=== PATIENT | female | born 1960 | race African-American/Black ===

== ENCOUNTER → 2016-08-10 | Outpatient (CLI) | payer MEDICARE, OTHER ==
[~2016-08-10] MED LIST: AMLO5TAB2 PO; GABA400C5 PO; MELA5TAB15 PO; METR500T10 PO; NICO7DIS2 T-DERMAL; PARO20TA2 PO; PAXI10TA2 PO; PAXI20TA PO
[2016-08-10 10:24] LABS: HEMATOCRIT 39.2 % (35.0-46.0); MEAN CELL VOLUME 81.9 FL (80.0-100.0); MEAN CORPUSCULAR HEMOGLOBIN 26.6 PG (27.0-34.0); MEAN CORPUSCULAR HGB CONC 32.5 % (32.0-36.0); PLATELET COUNT 359 TH/MM3 (150-450); RED BLOOD COUNT 4.79 MIL/MM3 (4.00-5.30); RED CELL DISTRIBUTION WIDTH 18.2 % (11.6-17.2); REVIEW FLAG FINAL; WHITE BLOOD COUNT 7.2 TH/MM3 (4.0-11.0)
[2016-08-10 10:56] LABS: BICARBONATE 30.4 MEQ/L (21.0-32.0)
== END ==
LOC: CLAB 09:57
PROVIDERS: ATTEND Family Medicine
DX: R53.83 Other fatigue (principal); I10 Essential (primary) hypertension; D50.9 Iron deficiency anemia, unspecified
CPT/HCPCS: 36415; 80048; 82728; 84443; 85027